=== PATIENT | male | born 1965 | race Caucasian/White ===

== ENCOUNTER 2018-09-26 17:17 | Inpatient (IN) ==
[2018-09-26] MEDS ORDERED: ONDANSETRON 4 MG/2 ML VIAL IV PRN (17:52)
[2018-09-26] MEDS ORDERED: HYDROmorphone 2 MG/1 ML VIAL IV PRN (17:52)
[2018-09-26] MEDS ORDERED: MORPHINE 4 MG/1 ML VIAL IV STA (18:32)
[2018-09-26] MEDS ORDERED: MORPHINE 4 MG/1 ML VIAL ONE (18:32)
[2018-09-26] MEDS: DEXTROSE 5% NACL 0.45% 1,000 ML IV SCH (18:36)
[2018-09-26] MEDS: PIPERACILLIN/TAZOBACTAM 3,375 MG in SODIUM CHLORIDE 0.9% 100 ML IV SCH (18:56)
[2018-09-27] MEDS: PIPERACILLIN/TAZOBACTAM 3,375 MG in SODIUM CHLORIDE 0.9% 100 ML IV SCH ×3 (02:11→16:20)
[2018-09-27] MEDS: DEXTROSE 5% NACL 0.45% 1,000 ML IV SCH ×2 (03:33→16:12)
[2018-09-27 05:23] LABS: Basophils % 0.4 % (0.0-0.8); Eosinophils # 0.2 10*3/uL (0.0-0.87); Eosinophils % 2.6 % (0.00-10.9); Hematocrit 41.6 VOL% (42.0-52.0); Hemoglobin 13.7 GM/DL (14.0-18.0); Immature Granulocytes % 0.1 %; Immature Granulocytes Absolute 0.01 #; Lymphocytes % 14.3 % (21.2-54.2); Mean Corpuscular HGB Conc 32.9 GM/DL (32-36); Mean Corpuscular Hemoglobin 29 PG (27-34); Mean Corpuscular Volume 87.4 FL (87-102); Mean Platelet Volume 9.9 FL (9.6-12.0); Monocytes # 1.4 10*3/uL (0.11-0.8); Monocytes % 20.1 % (1.7-12.7); Neutrophils # 4.5 10*3/uL (1.4-7.4); Neutrophils % 62.5 % (38.7-73.9); Platelet Count 202 T/CUMM (130-400); Red Blood Count 4.76 MC/CUMM (3.8-5.5); Red Cell Distribution Width 13.3 % (9.3-17.3); White Blood Count 7.2 T/CUMM (4-12)
[2018-09-27 05:52] LABS: Calcium 7.5 MG/DL (8.5-10.1); Osmolality,Calculated 280.5 MOS/KG (273-304); Potassium 3.7 MMOL/L (3.5-5.1)
[2018-09-27 06:21] LABS: Anisocytosis Slight; Eosinophils 1 % (0-10); Lymphocytes 13 % (20-55); Microcytosis Slight; Segmented Neutrophils 73 % (50-85); Total Cells Counted 100
[2018-09-27 06:22] LABS: Platelet Estimate Normal; Polychromasia Slight; Stomatocytes Slight
[2018-09-27] MEDS: PANTOPRAZOLE 40 MG VIAL IV SCH (08:26)
[2018-09-27] MEDS ORDERED: MORPHINE 4 MG/1 ML VIAL IV PRN (08:26)
[2018-09-28] MEDS: PIPERACILLIN/TAZOBACTAM 3,375 MG in SODIUM CHLORIDE 0.9% 100 ML IV SCH ×2 (00:33→08:45)
[2018-09-28] MEDS: DEXTROSE 5% NACL 0.45% 1,000 ML IV SCH ×2 (08:45→21:50)
[2018-09-28] MEDS: PANTOPRAZOLE 40 MG VIAL IV SCH (08:45)
[2018-09-28] MEDS: LOSARTAN/HCTZ 50-12.5 MG TABLET PO SCH (10:32)
[2018-09-28] MEDS: TAMSULOSIN 0.4 MG CAPSULE PO SCH (10:34)
[2018-09-29] MEDS: DEXTROSE 5% NACL 0.45% 1,000 ML IV SCH (05:59)
[2018-09-29 07:47] VITALS: BP 133/82
[2018-09-29] MEDS: LOSARTAN/HCTZ 50-12.5 MG TABLET PO SCH (09:15)
[2018-09-29] MEDS: TAMSULOSIN 0.4 MG CAPSULE PO SCH (09:15)
[2018-09-29] MEDS: PANTOPRAZOLE 40 MG VIAL IV SCH (10:54)
== END 2018-09-29 10:49 | disposition home or self-care (01) | DRG 390 ==
LOC: EDBD → EDUNIT# → N.ED 17:17 → N.EDINP 17:52 → N.2E 20:02
PROVIDERS: ADMIT Surgery; ATTEND Surgery